=== PATIENT | male | born 1955 | race American Indian/Alaskan Native ===

== ENCOUNTER 2016-09-29 23:06 | Emergency (ER) | payer OTHER, MEDICAID ==
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
[2016-09-30 00:22] LABS: Blood Urea Nitrogen 6 mg/dL (9-20); Calcium 7.9 mg/dL (8.4-10.2); Carbon Dioxide 21 mmol/L (22-30); Chloride 84.8 mmol/L (98-107); Glucose 85 mg/dL (75-100); Potassium 4.3 mmol/L (3.6-5.0); Sodium 122 mmol/L (137-145)
[2016-09-30 00:23] LABS: Basophils % (Auto) 0.7 % (0.0-1.8); Eosinophils % (Auto) 1.1 % (0.0-4.3); Hematocrit 29.5 % (35.5-45.6); Hemoglobin 9.9 gm/dl (11.8-15.2); Mean Corpuscular HGB Conc 34 % (32-34); Mean Corpuscular Hemoglobin 32 pg (28-32); Mean Corpuscular Volume 93 fl (84-94); Platelet Count 130 K/mm3 (140-440); Red Blood Count 3.16 M/mm3 (3.65-5.03); Red Cell Distribution Width 13.7 % (13.2-15.2); White Blood Count 3.1 K/mm3 (4.5-11.0)
[2016-09-30 00:44] LABS: Anion Gap 21 mmol/L
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
[2016-09-30 00:53] LABS: INR 1.26 (0.87-1.13)
[2016-09-30] MEDS ORDERED: MAGNESIUM SULFATE 2GM/50ML 2 GM/50 ML BAG IV ONE (01:15)
[2016-09-30] MEDS ORDERED: SUBLIMAZE IV ONE (01:20)
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
[2016-09-30] MEDS ORDERED: NACL 0.9% IV SCH (02:00)
[2016-09-30] MEDS ORDERED: NACL 0.9% 1000 ML 1,000 ML IV SCH (02:00)
[2016-09-30 02:57] VITALS: BP 170/95
[2016-09-30 03:52] LABS: Cholesterol 102 mg/dL (50-199); HDL Cholesterol 56 mg/dL (40-59); LDL Cholesterol,Direct 27 mg/dL (50-130); Triglycerides 97 mg/dL (2-149)
== END 2016-09-30 03:06 | disposition short-term general hospital (02) ==
LOC: ED 23:06
DX: R07.89 Other chest pain (principal); E87.1 Hypo-osmolality and hyponatremia; F10.10 Alcohol abuse, uncomplicated; R79.89 Other specified abnormal findings of blood chemistry; I10 Essential (primary) hypertension; K21.9 Gastro-esophageal reflux disease without esophagitis; M19.90 Unspecified osteoarthritis, unspecified site; V49.49XA Driver injured in collision with other motor vehicles in traffic accident, initial encounter; Y92.488 Other paved roadways as the place of occurrence of the external cause; Y93.89 Activity, other specified; Y99.9 Unspecified external cause status
CPT/HCPCS: 36415; 70450; 71020; 72125; 73630; 80048; 80061; 83735; 84484; 85025; 85610; 93005; 93010; 96365; 96375; 99285; G0480; J3010; J3475; J7030; 80320

== ENCOUNTER 2017-04-06 01:46 | Emergency (ER) | payer OTHER, MEDICAID ==
[2017-04-06] MEDS ORDERED: TYLENOL ONE (01:54)
[2017-04-06] MEDS ORDERED: TYLENOL PO ONE ×2 (01:55→04:03)
--- NOTE | 2017-04-06 02:25 | XRay Report ---
FINAL REPORT EXAM: XR TIBIA FIBULA 2V LT HISTORY: fall left leg pain, get report TECHNIQUE: Five views of the left tibia-fibula were obtained. FINDINGS: There is no acute fracture or soft tissue injury. The bones are osteoporotic. There is spurring along the cortical margin of the medial femoral condyle. The knee and ankle joints do not show any acute changes. IMPRESSION: No evidence of acute injury.
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
--- NOTE | 2017-04-06 02:30 | XRay Report ---
FINAL REPORT EXAM: XR RIBS UNILAT 2V RT HISTORY: fall Rt Lower Rib pain, get report TECHNIQUE: Three views of the right ribs were submitted. FINDINGS: There is a nondisplaced fracture of uncertain age involving the lateral aspect of the right 10th rib. There is also a nondisplaced fracture along the anterior aspect of the right 5th rib also uncertain age. There is no evidence of pneumothorax or effusion. IMPRESSION: Nondisplaced fractures involving the lateral aspect of the right 10th rib and anterior aspect of the right 5th rib, both which are of uncertain age. Correlation with clinical exam needed.
[2017-04-06] MEDS ORDERED: XYLOCAINE 2% INFILTRATI ONE (04:03)
[2017-04-06] MEDS ORDERED: NORCO 5/325 PO ONE (04:06)
--- NOTE | 2017-04-06 04:49 | Cat Scan Report ---
FINAL REPORT EXAM: CT HEAD/BRAIN WO CON HISTORY: s/p fall TECHNIQUE: Routine axial imaging was obtained the brain without IV contrast. Comparison is made to the study 09/29/2016. FINDINGS: There is moderate generalized atrophy. There is diminished attenuation of the periventricular white matter compatible with chronic microvascular disease changes. There is no evidence of acute stroke or hemorrhage. The ventricular system is appropriate in size and is symmetric. The visualized sinuses are clear. The mastoid air cells are well pneumatized. There is no evidence of skull fracture or scalp injury. IMPRESSION: Moderate generalized atrophy with chronic ischemic white matter changes. No evidence of acute stroke or hemorrhage.
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
--- NOTE | 2017-04-06 05:30 | Emergency Department Report ---
ED Fall HPI - General Chief Complaint: Fall Stated Complaint: R FOOT INJURY Time Seen by Provider: 04/06/17 03:56 Source: patient, EMS Mode of arrival: Ambulatory - History of Present Illness Initial Comments: 62M past medical history arthritis, acid reflux, high blood pressure presents with complaint of right sided rib pain left delgadillo pain and right foot pain status post fall. Patient states that he fell out of bed. Denies hitting his head denies loss of consciousness. Primarily complaining of achiness in his right side chest and states that he suffered a laceration to his left side delgadillo. States that his right foot is aching slightly. Patient is awake alert and oriented 3. Tetanus up to date as per patient. States that he lives in assisted living facility. Complaint: fall -: This evening Fall From: out of bed Place Fall Occurred: half-way/SNF Loss of Consciousness: none Prolonged Down Time?: no Symptoms Prior to Fall: none Location - Extremities: Left: Leg Severity: moderate Severity scale (0 -10): 6 Quality: aching Context: other (fell out of bed) Associated Symptoms: denies - Related Data Home Medications Medication Instructions Recorded Confirmed Last Taken Doxazosin [Cardura] 4 mg PO HS 05/08/14 09/29/16 09/24/14 Gabapentin 600 mg PO BID 05/08/14 09/29/16 09/24/14 hydrOXYzine HCL [Atarax] 25 mg PO Q6HR PRN 09/25/14 09/29/16 Unknown Diltiazem Cd [Cardizem Cd] 300 mg PO QDAY 09/29/16 09/29/16 Unknown Previous Rx's Medication Instructions Recorded Last Taken Type Acetaminophen [Pain Relief] 325 mg PO Q8H PRN #20 capsule 04/06/17 Unknown Rx Bacitracin/Polymixin B [Polysporin] 1 applicatio TP TID #1 tube 04/06/17 Unknown Rx Cephalexin [Keflex] 500 mg PO Q12HR #10 cap 04/06/17 Unknown Rx Allergies Allergy/AdvReac Type Severity Reaction Status Date / Time No Known Allergies Allergy Verified 09/25/14 08:40 ED Review of Systems ROS: Stated complaint: R FOOT INJURY Other details as noted in HPI Constitutional: denies: chills, fever Eyes: denies: eye pain, eye discharge, vision change ENT: denies: ear pain, throat pain Respiratory: denies: cough, shortness of breath, wheezing Cardiovascular: denies: chest pain, palpitations Endocrine: no symptoms reported Gastrointestinal: denies: abdominal pain, nausea, diarrhea Genitourinary: denies: urgency, dysuria Musculoskeletal: denies: back pain, joint swelling, arthralgia Skin: denies: rash, lesions Neurological: denies: headache, weakness, paresthesias Psychiatric: denies: anxiety, depression Hematological/Lymphatic: denies: easy bleeding, easy bruising ED Past Medical Hx - Past Medical History Previous Medical History?: Yes Hx Hypertension: Yes Hx Diabetes: No Hx GERD: Yes Hx Arthritis: Yes Hx Asthma: No Hx COPD: No Additional medical history: Heart problem 'irregular heart beat'. Tremors due to alcoholism - Surgical History Past Surgical History?: Yes Additional Surgical History: surgery to right toes - Social History Smoking Status: Never Smoker Substance Use Type: None - Medications Home Medications: Home Medications Medication Instructions Recorded Confirmed Last Taken Type Doxazosin [Cardura] 4 mg PO HS 05/08/14 09/29/16 09/24/14 History Gabapentin 600 mg PO BID 05/08/14 09/29/16 09/24/14 History hydrOXYzine HCL [Atarax] 25 mg PO Q6HR PRN 09/25/14 09/29/16 Unknown History Diltiazem Cd [Cardizem Cd] 300 mg PO QDAY 09/29/16 09/29/16 Unknown History Acetaminophen [Pain Relief] 325 mg PO Q8H PRN #20 capsule 04/06/17 Unknown Rx Bacitracin/Polymixin B [Polysporin] 1 applicatio TP TID #1 tube 04/06/17 Unknown Rx Cephalexin [Keflex] 500 mg PO Q12HR #10 cap 04/06/17 Unknown Rx ED Physical Exam - General Limitations: No Limitations General appearance: alert, in no apparent distress - Head Head exam: Present: atraumatic, normocephalic - Eye Eye exam: Present: normal appearance, PERRL, EOMI - ENT ENT exam: Present: mucous membranes moist - Neck Neck exam: Present: normal inspection, full ROM (neck flexion and extension intact) - Respiratory Respiratory exam: Present: normal lung sounds bilaterally, chest wall tenderness (some reproducible right-sided chest wall tenderness). Absent: respiratory distress - Cardiovascular Cardiovascular Exam: Present: regular rate, normal rhythm. Absent: systolic murmur, diastolic murmur, rubs, gallop - GI/Abdominal GI/Abdominal exam: Present: soft (abdomen soft nontender nondistended), normal bowel sounds - Rectal Rectal exam: Present: deferred - Extremities Exam Extremities exam: Present: normal inspection - Expanded Lower Extremity Exam Left Lower Leg exam: Present: normal inspection, laceration (vertical laceration anterior left delgadillo, approximately 5 cm in length) Foot/Toe exam: Present: normal inspection, full ROM Neuro vascular tendon exam: Present: no vascular compromise (distal dorsalis pedis and posterior tibial pulses intact) Gait: Positive: observed and normal 1 - vertical alceration here - Back Exam Back exam: Present: normal inspection - Neurological Exam Neurological exam: Present: alert, oriented X3, CN II-XII intact, normal gait - Expanded Neurological Exam Expanded Patient oriented to: Present: person, place, time Cranial nerves: EOM's Intact: Normal, Facial Sensation: Normal Cerebellar function: Finger to Nose: Normal, Heel to Delgadillo: Normal Sensory exam: Upper Extremity Light Touch: Normal, Lower Extremity Light Touch: Normal Motor strength exam: RUE: 5, LUE: 5, RLE: 5, LLE: 5 Best Eye Response (Katelyn): (4) open spontaneously Best Motor Response (Katelyn): (6) obeys commands Best Verbal Response (Katelyn): (5) oriented Katelyn Total: 15 - Psychiatric Psychiatric exam: Present: normal affect, normal mood - Skin Skin exam: Present: warm, dry, intact, normal color. Absent: rash ED Course Vital Signs 04/06/17 04/06/17 01:53 02:03 Temperature 97.4 F L Pulse Rate 82 Respiratory 18 20 Rate Blood Pressure 158/99 O2 Sat by Pulse 100 Oximetry - Laceration /Wound Repair Left Anterior Distal Leg Wound Location: lower extremity (left lower anterior delgadillo region) Wound Length (cm): 6 Wound's Depth, Shape: superficial Irrigated w/ Saline (ccs): 500 Betadine Prep?: Yes Anesthesia: 1% Lidocaine Volume Anesthetic (ccs): 4 Wound Debrided: minimal Wound Repaired With: sutures Suture Size/Type: 5:0, nylon Number of Sutures: 2 Layer Closure?: No Sterile Dressing Applied?: Yes (triple abx w/ gauze) ED Medical Decision Making - Medical Decision Making A/P: Mechanical fall out of bed, left lower extremity laceration 1-CT head and C-spine unremarkable, x-rays show no fractures. 2- sutures to be removed in 10 days 3-tetanus up to date 4-Motrin when necessary, triple antibiotic ointment 5- pt advised to return to the ED for any fevers chills pus drainage erythema at site of laceration Critical care attestation.: If time is entered above; I have spent that time in minutes in the direct care of this critically ill patient, excluding procedure time. ED Disposition Clinical Impression: Rib pain on right side Fall Qualifiers: Encounter type: initial encounter Qualified Code(s): W19.XXXA - Unspecified fall, initial encounter Laceration of leg Qualifiers: Encounter type: initial encounter Laterality: left Qualified Code(s): S81.812A - Laceration without foreign body, left lower leg, initial encounter Disposition: TO HOME OR SELFCARE Is pt being admited?: No Does the pt Need Aspirin: No Condition: Stable Instructions: Chest Pain (ED), Costochondritis (ED), Laceration (ED), Suture Care (ED), Skin Adhesive Care (ED) Additional Instructions: sutures to be removed in 10-14 days, pt can return to the ED for this Prescriptions: Acetaminophen [Pain Relief] 325 mg PO Q8H PRN #20 capsule PRN Reason: Pain Bacitracin/Polymixin B [Polysporin] 1 applicatio TP TID #1 tube Cephalexin [Keflex] 500 mg PO Q12HR #10 cap Referrals: [facility] [Outside] - 3-5 Days [facility] [Outside] - 3-5 Days Time of Disposition: 06:47
--- NOTE | 2017-04-06 05:34 | Cat Scan Report ---
FINAL REPORT EXAM: CT CHEST WO CON HISTORY: right sided broken ribs s/p fall TECHNIQUE: Routine axial imaging was obtained of the thorax without IV contrast with sagittal and coronal reconstructions. Correlation with the right rib series of 04/06/2017 was obtained. FINDINGS: There is no definite acute displaced rib fracture in either hemithorax. The deformity along the anterior aspect of the right 5th rib represents an atypical costochondral junction. The radiolucent line in the right 10th rib represents a nutrient canal. The lungs are clear. There is no evidence of pneumothorax or pleural effusion. The heart size is normal. Pericardial fluid is not seen. The thoracic spine reveals mild disc degeneration at several levels. In the upper abdomen the adrenal glands appear normal. IMPRESSION: No definite acute displaced rib fractures seen in the right hemithorax as described. No evidence of pneumothorax, infiltrate or pleural effusion. No acute process in the chest.
[2017-04-06 06:56] VITALS: BP 147/68
== END 2017-04-06 07:18 | disposition home or self-care (01) ==
LOC: ED 01:46
DX: S81.812A Laceration without foreign body, left lower leg, initial encounter (principal); R07.81 Pleurodynia; I10 Essential (primary) hypertension; K21.9 Gastro-esophageal reflux disease without esophagitis; W18.30XA Fall on same level, unspecified, initial encounter; Y93.89 Activity, other specified; Y92.89 Other specified places as the place of occurrence of the external cause; Y99.8 Other external cause status
CPT/HCPCS: 70450; 71250; 72125

== ENCOUNTER 2017-04-28 09:49 | Emergency (ER) | payer OTHER, MEDICAID ==
[2017-04-28 10:08] VITALS: BP 99/55
--- NOTE | 2017-04-28 10:41 | Emergency Department Report ---
Suture/Staple Removal - [facility] Chief Complaint: Laceration/Recheck/Suture Stated Complaint: LEFT LEG SUTURE REMOVAL Time Seen by Provider: 04/28/17 10:29 When Sutures or [place] Placed: 8-10 Days Ago Wound Location: left lower anterior leg ED Review of Systems ROS: Stated complaint: LEFT LEG SUTURE REMOVAL Other details as noted in HPI Constitutional: denies: chills, fever Eyes: denies: eye pain, eye discharge, vision change ENT: denies: ear pain, throat pain Respiratory: denies: cough, shortness of breath, wheezing Cardiovascular: denies: chest pain, palpitations Endocrine: no symptoms reported Gastrointestinal: denies: abdominal pain, nausea, vomiting, diarrhea Genitourinary: urgency, dysuria Musculoskeletal: back pain, joint swelling, arthralgia Skin: denies: rash, lesions, pruritus Neurological: denies: headache, weakness, paresthesias Psychiatric: anxiety. denies: depression Hematological/Lymphatic: denies: easy bleeding, easy bruising ED Past Medical Hx - Past Medical History Previous Medical History?: Yes Hx Hypertension: Yes Hx Diabetes: No Hx GERD: Yes Hx Arthritis: Yes Hx Asthma: No Hx COPD: No Additional medical history: Heart problem 'irregular heart beat'. Tremors due to alcoholism - Surgical History Past Surgical History?: Yes Additional Surgical History: surgery to right toes - Social History Smoking Status: Never Smoker Substance Use Type: Alcohol - Medications Home Medications: Home Medications Medication Instructions Recorded Confirmed Last Taken Type Doxazosin [Cardura] 4 mg PO HS 05/08/14 09/29/16 09/24/14 History Gabapentin 600 mg PO BID 05/08/14 09/29/16 09/24/14 History hydrOXYzine HCL [Atarax] 25 mg PO Q6HR PRN 09/25/14 09/29/16 Unknown History Diltiazem Cd [Cardizem Cd] 300 mg PO QDAY 09/29/16 09/29/16 Unknown History Acetaminophen [Pain Relief] 325 mg PO Q8H PRN #20 capsule 04/06/17 Unknown Rx Bacitracin/Polymixin B [Polysporin] 1 applicatio TP TID #1 tube 04/06/17 Unknown Rx Cephalexin [Keflex] 500 mg PO Q12HR #10 cap 04/06/17 Unknown Rx Suture Removal Exam - Exam General: Vital signs noted. No distress. Alert and acting appropriately. Wound: No Pathologic Erythema, No Tenderness, No Drainage, No Pus, No Wound Dehiscence Other Systems: All other systems reviewed and are unremarkable. ED Course Vital Signs 04/28/17 10:06 Temperature 98.6 F Pulse Rate 66 Respiratory 18 Rate Blood Pressure 99/55 O2 Sat by Pulse 100 Oximetry ED Recheck MDM - Medical Decision Making Pt tolerated procedure well. Critical care attestation.: If time is entered above; I have spent that time in minutes in the direct care of this critically ill patient, excluding procedure time. ED Disposition Clinical Impression: Encounter for removal of sutures Disposition: DC-01 TO HOME OR SELFCARE Is pt being admited?: No Does the pt Need Aspirin: No Condition: Stable Instructions: Acute Wound Care (ED) Additional Instructions: Make sure to follow up with the primary care physician as discussed. Take all your medications as you've been prescribed. If you have any worsening symptoms or develop new symptoms please return to ED immediately. Referrals: PRIMARY CARE, [Primary Care Provider] - 3-5 Days Forms: Work/School Release Form(ED) Time of Disposition: 10:40
== END 2017-04-28 10:56 | disposition home or self-care (01) ==
LOC: ED 09:49
DX: Z48.02 Encounter for removal of sutures (principal)